=== PATIENT | male | born 1955 | race Caucasian/White ===

== ENCOUNTER → 2019-02-07 08:18 | Outpatient (CLI) | payer OTHER, SELFPAY ==
[2019-02-07 09:41] LABS: Alanine Aminotransferase 28 IU/L (21-72); Aspartate Aminotransferase 27 IU/L (17-59); BUN Creatinine Ratio 21.3 (6-22); Blood Urea Nitrogen 17 mg/dL (9-20); Calcium 9.5 mg/dL (8.4-10.2); Carbon Dioxide 28 mmol/L (22-32); Chloride 106 mmol/L (98-107); Cholesterol 174 mg/dL (140-199); Estimated Glomerular Filt Rate > 60.0 mL/min (>60); Glucose 97 mg/dL (80-110); HDL Cholesterol 52 mg/dL (40-60); HEMOLYSIS < 15 (0-50); LDL Cholesterol Calculated 106 mg/dL (<100); Potassium 4.6 mmol/L (3.4-5.1); Sodium 140 mmol/L (137-145); Triglycerides 80 mg/dL (35-150)
[2019-02-07 10:11] LABS: Prostate Specific Antigen Scrn 1.68 ng/mL (0.1-4.0)
== END ==
PROVIDERS: PCP Internal Medicine; Visit Provider Internal Medicine
DX: Z00.00 Encounter for general adult medical examination without abnormal findings (principal); E78.5 Hyperlipidemia, unspecified
CPT/HCPCS: 36415; 80048; 80061; 84450; 84460; G0103

== ENCOUNTER → 2022-04-25 15:46 | Outpatient (CLI) | payer MEDICARE, OTHER, SELFPAY | PROVIDERS: PCP Internal Medicine; Visit Provider Registered Nurse | DX: R30.0 Dysuria (principal) | CPT/HCPCS: 87086 ==

== ENCOUNTER 2022-05-10 14:03 | Emergency (ER) | payer MEDICARE, OTHER, SELFPAY ==
[2022-05-10 14:19] VITALS: BP 153/91; PULSE 91; RESP 20; TEMP 36.5; O2SAT 98; BMI 28.5
--- NOTE | 2022-05-10 18:01 | ED_ITS ---
HPI - Male Genitourinary <Mena Morgan, [facility] - Last Filed: 05/10/22 20:21> General Chief complaint: Urogenital-Male Stated complaint: Thought UTI 3weeks ago tested clean, Worsening Time Seen by Provider: 05/10/22 17:30 Source: patient Mode of arrival: Ambulatory History of Present Illness HPI Narrative: This is a 67-year-old male who presents to the emergency department complaining of pain at his urethral meatus and pain, urinary urgency and frequency, states that he has been on ciprofloxacin for the last 5 days for presumed UTI and has an upcoming appointment with Urology but has not been seen yet. Patient says he has been up all night and multiple nights trying to empty his bladder. Postvoid residual today was completed without urinary retention however patient is complaining about pain at his urethral meatus instance that it is not painful when he voids but painful all other times. He states that he feels urinary urgency and frequency and has been on ciprofloxacin for the last 5 days and sta kailey that his symptoms may have gotten worse when that started. Patient is requesting Flomax and denies any pain with defecation, denies any receptive anal intercourse, denies being sexually active at this time due to his 's vaginal atrophy. Related Data Home Medications Medication Instructions Recorded Confirmed aspirin 81 mg tablet,delayed 81 mg PO QDAY ##0 11/18/12 04/25/22 release atorvastatin PO 04/25/22 04/25/22 Previous Rx's Medication Instructions Recorded gabapentin 300 mg capsule 300 mg PO TID #90 caps 07/31/16 (Neurontin) doxycycline hyclate 100 mg tablet 100 mg PO BID for ongoing urinary 05/10/22 pain 7 days #14 tabs lidocaine 4 % topical gel 1 applic topical QID PRN pain #10 05/10/22 grams phenazopyridine 100 mg tablet 100 mg PO TID PRN pain 6 doses #7 05/10/22 (Pyridium) tabs tamsulosin 0.4 mg capsule (Flomax) 0.4 mg PO BEDTIME #30 caps 05/10/22 Allergies Allergy/AdvReac Type Severity Reaction Status Date / Time codeine [CODEINE] Allergy Unknown DIARRHEA Unverified 04/25/22 15:56 SEASONAL POLLENS Allergy Mild SNEEZING Uncoded 04/25/22 15:56 Review of Systems <ANGELIA Pandya - Last Filed: 05/10/22 20:21> Review of Systems Narrative: Review of systems is negative for acute abnormalities unless otherwise noted in HPI Patient History <ANGELIA Pandya - Last Filed: 05/10/22 20:21> Social History Smoking Status: Never smoker Smoking Status: Never smoker alcohol intake frequency: holidays/special occasions only Substance Use Type: does not use Exam <ANGELIA Pandya - Last Filed: 05/10/22 20:21> Narrative Exam Narrative: Reviewed vitals signs and nursing notes. General: cooperative, comfortable, in no acute distress, well groomed HEENT: symmetrical facial expressions, moist mucous membranes Cardiovascular: regular rate and rhythm, no peripheral edema, warm extremities Respiratory: normal effort, able to speak in complete sentences, without wheezing, stridor, or abnormal breath sounds. No retractions or tachypnea. GI: abdomen soft, nontender to palpation, nondistended, without masses, rebound tenderness or exquisite tenderness with exam. Prostate exam deferred as patient states that he has had his regularly checked and does not have any pain with defecation : Management Engineer used for exam, no wound or erythema at the penile head, urethra is exquisitely tender, wet mount obtained from urethral meatus, no bleeding MSK: moves all extremities, neurovascularly intact, no weakness, normal tone Skin: brisk capillary refill, without pallor or erythema Neuro: normal speech and cognition, A&O x3, ambulatory, clear speech Psych: mental status is grossly normal, congruent mood, normal affect, pleasant and cooperative Initial Vital Signs Initial Vital Signs: Vital Signs Temperature 97.7 F 05/10/22 14:19 Pulse Rate 91 H 05/10/22 14:19 Respiratory Rate 20 05/10/22 14:19 Blood Pressure 153/91 H 05/10/22 14:19 Pulse Oximetry 98 05/10/22 14:19 Oxygen Delivery Method 05/10/22 14:19 <Bobbi Sheikh MD - Last Filed: 05/13/22 08:35> Initial Vital Signs Initial Vital Signs: Vital Signs Temperature 97.7 F 05/10/22 14:19 Pulse Rate 91 H 05/10/22 14:19 Respiratory Rate 20 05/10/22 14:19 Blood Pressure 153/91 H 05/10/22 14:19 Pulse Oximetry 98 05/10/22 14:19 Oxygen Delivery Method 05/10/22 14:19 Course <ANGELIA Pandya - Last Filed: 05/10/22 20:21> Orders Ordered: Discontinued Medications Doxycycline Hyclate (Doxycycline Hyclate 100 Mg Tablet) 100 mg PO NOW ONE Stop: 05/10/22 18:28 Last Admin: 05/10/22 18:37 Dose: Not Given Documented By: MARIO Tamsulosin HCl (Tamsulosin 0.4 Mg Capsule) 0.4 mg PO NOW ONE Stop: 05/10/22 18:15 Last Admin: 05/10/22 18:22 Dose: 0.4 mg Documented By: ALESSANDRA Consultations Consultation #1: Referral placed for Dr. Espinosa, recommend sooner follow-up for patient to evaluate etiology of his complaints Vital Signs Vital signs: Vital Signs - 8 hr 05/10/22 14:19 05/10/22 18:36 Temperature 97.7 F Pulse Rate 91 H 78 Respiratory Rate 20 20 Blood Pressure 153/91 H 152/99 H Pulse Oximetry 98 97 Oxygen Delivery Method Room Air Room Air <Bobbi Sheikh MD - Last Filed: 05/13/22 08:35> Orders Ordered: Discontinued Medications Doxycycline Hyclate (Doxycycline Hyclate 100 Mg Tablet) 100 mg PO NOW ONE Stop: 05/10/22 18:28 Last Admin: 05/10/22 18:37 Dose: Not Given Documented By: MARIO Tamsulosin HCl (Tamsulosin 0.4 Mg Capsule) 0.4 mg PO NOW ONE Stop: 05/10/22 18:15 Last Admin: 05/10/22 18:22 Dose: 0.4 mg Documented By: ALESSANDRA Vital Signs Vital signs: Vital Signs - 8 hr 05/10/22 14:19 05/10/22 18:36 Temperature 97.7 F Pulse Rate 91 H 78 Respiratory Rate 20 20 Blood Pressure 153/91 H 152/99 H Pulse Oximetry 98 97 Oxygen Delivery Method Room Air Room Air MDM - Male Genitourinary <ANGELIA Pandya - Last Filed: 05/10/22 20:21> Lab Data Labs: Lab Results 05/10/22 05/10/22 Range/Units 14:16 14:16 Urine RBC 1-5/hpf (0-5/HPF) Urine WBC 5-10/hpf H (0-5/HPF) Urine Bacteria Occasional (0-1) (None) Ur Culture Indicated? Specimen cultured Ur Chlamydia DNA (PCR) Not detected N gonorrhoeae DNA (PCR) Not detected Urine Dip Bedside Urine Glucose Negative Bedside Urine Bilirubin - Negative Bedside Urine Ketone - Negative Urine Specific [place] 1.030 Bedside Urine Occult Blood - Negative Bedside Urine pH 5.5 Bedside Urine Protein - Negative Bedside Urine Urobilinogen - Negative Bedside Urine Nitrite - Negative Bedside Urine Leukocytes - Negative Esterase SPEC #: [id number] CARTER: 05/10/22 STATUS: COMP REQ #: [id number] SPDESC: RECD: 05/10/[address]: Mena Morgan SOURCE: Penis ENTR: 05/10/[address]: Angella Garrison MD FAX TO: ORDERED: Wet Prep Procedure Result Verified Site Wet Prep Tric BV Lisandra Final 05/10/221819 White blood cells No WBC seen Clue cells: None seen Yeast: None seen Trichomonas: None seen MDM Narrative Medical decision making narrative: This is a 67-year-old male who presents to the emergency department stating that he thinks his prostate is getting larger and use having urinary urgency and frequency and has been on ciprofloxacin for 5 days for presumed urinary infection and states that he has pain is urethral meatus at all times other than when voiding. Patient's urine microscopy shows wbc's 5-10, 1-5 RBCs, occasional bacteria and urine was sent for culture. Wet mount of urethral meatus is negative for WBCs, clue cells, yeast and Trichomonas. Urine gonorrhea and chlamydia are negative. Patient was given a prescription of Pyridium, Flomax, lidocaine jelly, and doxycycline for concern about urethritis. A consultation to Urology was placed, hopefully patient can follow-up sooner than his scheduled appointment which is over a month out. His urine culture is pending, I encourage patient to finish his ciprofloxacin, he was given doxycycline for wait and see antibiotic to see if his symptoms get worse or better on Flomax and Pyridium. Encouraged him to stay hydrated, return to the emergency department for any progressing of his symptoms and especially for fever, chills, abdominal pain, nausea vomiting. Patient is appropriate and amenable to discharge home. Vital signs are stable on repeat examination is unremarkable. Patient has been informed of results. Patient has been given strict return to ER precautions for any new or worsening symptoms. Patient understands to follow up closely with outpatient providers as instructed. Patient understands plan and agrees to discharge home. All questions and concerns answered at this time. <Bobbi Sheikh MD - Last Filed: 05/13/22 08:35> Lab Data Labs: Lab Results 05/10/22 05/10/22 Range/Units 14:16 14:16 Urine RBC 1-5/hpf (0-5/HPF) Urine WBC 5-10/hpf H (0-5/HPF) Urine Bacteria Occasional (0-1) (None) Ur Culture Indicated? Specimen cultured Ur Chlamydia DNA (PCR) Not detected N gonorrhoeae DNA (PCR) Not detected Urine Dip Bedside Urine Glucose Negative Bedside Urine Bilirubin - Negative Bedside Urine Ketone - Negative Urine Specific [place] 1.030 Bedside Urine Occult Blood - Negative Bedside Urine pH 5.5 Bedside Urine Protein - Negative Bedside Urine Urobilinogen - Negative Bedside Urine Nitrite - Negative Bedside Urine Leukocytes - Negative Esterase Discharge Plan Departure Patient Disposition: Home Clinical Impression: Urethritis Instructions: Urethritis, DI for Urinary Tract Infection (UTI), DI for Urinary Retention in Men Activity Restrictions/Additional Instructions: *You have been diagnosed with urethritis, we will call you if your urine culture or other urine tests come back positive for something you will need a different prescription for. At this point, you are on day 5 of Cipro for a UTI, your u rine today shows bacteria and white blood cells in your urine. This may be from your urethra hence why I am calling this urethritis. If this does not improve, please try doxycycline for the next 7 days to see if that helps improve your symptoms. Please take the Pyridium to see if that helps it heal, and take Flomax each night to help empty your bladder. I have placed another consultation with Dr. Espinosa for Urology with hopes that he can see you before your scheduled appointment. Please call the office tomorrow to see if you can move your appointment up since there is a consultation in for you. Please start the antibiotic I have prescribed for you if your symptoms are ongoing, or if we call you and ask you to start those. If your symptoms progress and you have fever, chills, feel worse, please come back to the emergency department. Please use ibuprofen 800 mg every 8 hours as needed for your pain with food and water, inflammation may be a big part of the pain. *What to do: *Please continue to take your regular medications as directed. [x ] New medication prescriptions sent to your pharmacy: [ [facility]] [ ] New medication written as a paper prescription [ ] No new medications given *Please follow up with your primary care provider in 2-3 days, call for an appointment. Let them know you were seen in the Emergency Department and that we asked that you be seen for follow-up. We will electronically transmit a record of today's note if your PCP is in our system *If you do not have a primary care provider please contact [phone] [facility] with one of the [facility] primary care providers. *Return to Emergency Department if you should have any new, worsening, or concerning symptoms, such as [fever greater than 101F, chills, worsening pain, persistent vomiting or other bothersome symptoms]. Prescriptions: New doxycycline hyclate 100 mg tablet 100 mg PO BID 7 Days Qty: 14 0RF phenazopyridine [Pyridium] 100 mg tablet 100 mg PO TID PRN (Reason: pain) Qty: 7 0RF tamsulosin [Flomax] 0.4 mg capsule 0.4 mg PO BEDTIME Qty: 30 0RF lidocaine 4 % gel 1 applic topical QID PRN (Reason: pain) Qty: 10 0RF No Action atorvastatin PO aspirin 81 MG tablet,delayed release (DR/EC) 81 mg PO QDAY Qty: 0 gabapentin [Neurontin] 300 MG capsule 300 mg PO TID Qty: 90 0RF Referrals: Angella Garrison MD [Primary Care Provider] - Alexy Espinosa MD [Physician] - Visit Report Forms: Patient Portal/API <Bobbi Sheikh MD - Last Filed: 05/13/22 08:35> Cosign ED Attending Jose Lature Attestation: I was immediately available in the department for consultation throughout this patient's visit. I agree with documentation as above. Bobbi Sheikh MD
[2022-05-10 18:08] LABS: Bacteria Urine Occasional (0-1); Culture Indicated Urine Specimen Cultured; RBC Urine 1-5/HPF (0-5/HPF); WBC Urine 5-10/HPF (0-5/HPF)
[2022-05-10] MEDS: TAMSULOSIN 0.4 MG CAPSULE PO (18:22)
[2022-05-10 18:36] VITALS: BP 152/99; PULSE 78; RESP 20; O2SAT 97
[2022-05-10 19:47] LABS: Urine N gonorrhoeae NOT DETECTED
[2022-05-10 19:52] LABS: Urine Chlamydia NOT DETECTED
== END 2022-05-10 18:52 | disposition home or self-care (01) ==
PROVIDERS: Emergency Provider Nurse Practitioner Critical Care Medicine; PCP Internal Medicine
DX: N34.2 Other urethritis (principal); R33.8 Other retention of urine
CPT/HCPCS: 51798; 81003; 81015; 87086; 87210; 87491; 87591; 99283

== ENCOUNTER 2022-12-29 09:10 | Emergency (ER) | payer MEDICARE, OTHER, SELFPAY ==
[2022-12-29] VITALS (13 sets, daily range): BP systolic 123–150; BP diastolic 63–77; PULSE 54–71; RESP 14–25; TEMP 35.9; O2SAT 95–99; BMI 28.2
--- NOTE | 2022-12-29 09:25 | DI.RAD.S_ITS ---
PROCEDURE: XR CHEST 1V INDICATIONS: chest pain TECHNIQUE: One view of the chest was acquired. COMPARISON: None. FINDINGS: Surgical changes and devices: None. Lungs and pleura: Lungs are clear. No pleural effusions or pneumothorax. Mediastinum: Mediastinal contours appear normal. Heart size is normal. Bones and chest wall: No suspicious bony lesions. Overlying soft tissues appear unremarkable. IMPRESSION: No acute cardiopulmonary abnormalities or focal airspace disease. Dictated by: Dwayne Britt M.D. on 12/29/2022 at 9:55 Approved by: Dwayne Britt M.D. on 12/29/2022 at 9:56
[2022-12-29 09:35] LABS: Add Manual Diff / Slide Review NO; Basophils Absolute Auto 0 /uL (0-100); Basophils Percent Auto 0.5 % (0-2); Eosinophils Absolute Auto 500 /uL (0-450); Eosinophils Percent Auto 8.6 % (2-4); Hematocrit 42.9 % (41-53); Hemoglobin 14.8 g/dL (13.5-17.5); Lymphocytes Absolute Auto 900 /uL (1100-4500); Lymphocytes Percent Auto 17.1 % (25-40); Mean Corpuscular HGB Conc 34.6 % (30-36); Mean Corpuscular Hemoglobin 30.7 PG (26-34); Mean Corpuscular Volume 88.6 fL (80-100); Monocytes Absolute Auto 500 /uL (0-900); Monocytes Percent Auto 8.8 % (3-14); Neutrophils Absolute Auto 3600 /uL (1500-7000); Platelet Count 181 X10^3/uL (150-400); Red Blood Cell Count 4.84 X10^6/uL (4.5-5.9); Red Cell Distribution Width 13.7 % (11.6-14.8); White Blood Cell Count 5.5 X10^3/uL (4.5-11.0)
[2022-12-29 09:38] LABS: INR 1.1 (0.9-1.3); Prothrombin Time 12.5 SECONDS (10.1-12.7)
[2022-12-29 09:40] LABS: PTT Partial Thromboplastin Tim 30 SECONDS (26-36)
[2022-12-29 09:45] LABS: Alanine Aminotransferase 29 IU/L (<50); Albumin 4.2 g/dL (3.5-5.0); Albumin Globulin Ratio 1.5 (1.0-2.8); Alkaline Phosphatase 74 U/L (38-126); Aspartate Aminotransferase 33 IU/L (17-59); BUN Creatinine Ratio 17.2 (6-22); Bilirubin Total 2.9 mg/dL (0.2-1.3); Blood Urea Nitrogen 15 mg/dL (9-20); Calcium 8.9 mg/dL (8.4-10.2); Carbon Dioxide 26 mmol/L (22-32); Chloride 105 mmol/L (98-107); Creatine Kinase 254 U/L (55-170); Estimated Glomerular Filt Rate > 60 mL/min (>60); Globulin 2.8 g/dL (1.7-4.1); Glucose 117 mg/dL (80-110); HEMOLYSIS < 15 (0-50); Lipase 79 U/L (23-300); Magnesium 2.2 mg/dL (1.6-2.3); Potassium 4.2 mmol/L (3.4-5.1); Sodium 137 mmol/L (137-145)
[2022-12-29 09:45] LABS: COVID19 -Nasal RAPID Negative (Negative)
[2022-12-29 09:57] LABS: Troponin I < 0.012 ng/mL (0.01-0.034)
[2022-12-29 09:59] LABS: CKMB % Relative Index 1.1 % (1.5-5.0); Creatine Kinase MB 2.78 ng/mL (<2.37)
--- NOTE | 2022-12-29 11:11 | ED.NEUROSD ---
HPI - Neuro Symptoms/Deficit General Chief Complaint: Dizziness Stated Complaint: dizzy/ balance off/ BP is high Time Seen by Provider: 12/29/22 11:11 Source: patient Mode of arrival: Ambulatory History of Present Illness HPI Narrative: This is a 67-year-old male with history of BPH and dyslipidemia who presented with vertigo-like symptoms. Patient states he woke up this morning open his eyes in the room was spinning. He states the spinning eventually resolved but not immediately. He states that he also feels very off balance and has been able to walk but has to hang onto things. Patient denies any headache, no vision changes, no cold cough or congestion. No ear pain. No double vision. No speech changes. No numbness, tingling or weakness in his extremities. He states he is off balance but does not have any weakness that he appreciates. He states movements of his head seems to make his symptoms worse. No bowel or bladder incontinence. No chest pain or shortness of breath. No nausea no vomiting, no diarrhea constipation, no urinary symptoms. He is not had similar symptoms in the past. He is had a prior appendectomy and knee surgery. No tobacco, 2 or 3 beers monthly, he did have a [place] and shot of Tequila last night. No illicit. His primary care is Dr. Patel. Related Data Home Medications Medication Instructions Recorded Confirmed aspirin 81 mg tablet,delayed 81 mg PO QDAY ##0 11/18/12 11/09/22 release atorvastatin PO 04/25/22 11/09/22 cholecalciferol (vitamin D3) 50 50 mcg PO DAILY 05/25/22 11/09/22 mcg (2,000 unit) capsule Previous Rx's Medication Instructions Recorded gabapentin 300 mg capsule 300 mg PO TID #90 caps 07/31/16 (Neurontin) tamsulosin 0.4 mg capsule (Flomax) 0.4 mg PO BEDTIME #90 caps 05/25/22 meclizine 25 mg chewable tablet 25 mg PO TID PRN dizziness #20 tabs 12/29/22 Allergies Allergy/AdvReac Type Severity Reaction Status Date / Time codeine [CODEINE] Allergy Unknown DIARRHEA Verified 12/29/22 09:19 SEASONAL POLLENS Allergy Mild SNEEZING Uncoded 11/09/22 08:12 Review of Systems Review of Systems ROS Unobtainable: All systems reviewed & are unremarkable except as noted in HPI and below Patient History Medical History Anxiety History of urinary tract infection Incomplete emptying of bladder Lower urinary tract symptoms Shy bladder syndrome Surgical History History of knee replacement Hx of appendectomy Family History Father Hyperlipidemia Heart attack Social History marital status: number of children: 1 Smoking Status: Never smoker Smoking Status: Never smoker alcohol intake frequency: a few times a month Substance Use Type: does not use Exam Narrative Exam Narrative: GEN: well nourished, well appearing male, alert and oriented x 3, patient appears to be in mild distress. HEENT: Atraumatic, pupils are equal round reactive to light, extraocular movements are intact, positive Graciela-Hallpike on the right with rotatory nystagmus, nares are clear, TMs are retracted, mild fluid, no erythema or other skin changes, there is no conjunctival pallor. Throat is clear without any exudates, erythema, tonsillar enlargement or uvular deviation, no facial droop. HEART: Regular rate and rhythm without murmur, clicks, rubs. No carotid bruits, pulses are equal in upper and lower extremities LUNGS:Lungs clear to auscultation, no wheezes, rales, crackles, chest moves symmetrically ABD:bowel sounds normal, soft, non-tender, no guarding, rebound, rigidity, no masses noted, no hepatosplenomegaly :No CVA tenderness MSCL: Non-tender, no muscle atrophy, muscles strength 5/5 upper and lower extremities, full range of motion NEURO:CN 2-12 intact, sensation normal, finger nose finger test normal, heel alba test normal. SKIN: No rash, erythema or other skin changes Initial Vital Signs Initial Vital Signs: Vital Signs Temperature 96.6 F L 12/29/22 09:14 Pulse Rate 63 12/29/22 09:14 Respiratory Rate 14 12/29/22 09:14 Blood Pressure 150/72 H 12/29/22 09:14 Pulse Oximetry 98 12/29/22 09:14 Oxygen Delivery Method Room Air 12/29/22 09:14 Scores NIH Stroke Scale Level of Conciousness: Alert, keenly responsive Ask month/age: Answers both questions correctly. Open/close eyes, close hand: Performs both tasks correctly Best gaze horizontal: Normal Visual curran: No visual loss Facial palsy: Normal symetrical movement Left arm drift: No drift for full 10 sec Right arm drift: No drift for full 10 sec Left leg drift: No drift for full 5 sec Right leg drift: No drift for full 5 sec Limb ataxia: Absent Sensory on face/arms/legs: Normal, no sensory loss Best language: No aphasia, normal Dysarthria: Normal Extinction or inattention: No abnormality Total NIH Stroke scale score: 0 Course Orders Ordered: Discontinued Medications Meclizine HCl (Meclizine Hcl 12.5 Mg Tablet) 50 mg PO NOW ONE Stop: 12/29/22 11:40 Last Admin: 12/29/22 11:53 Dose: 50 mg Documented By: MARIO Vital Signs Vital signs: Vital Signs - 8 hr 12/29/22 11:00 12/29/22 11:01 12/29/22 11:01 Pulse Rate 55 L 54 L Respiratory Rate 24 Blood Pressure 148/66 H Pulse Oximetry 96 96 12/29/22 11:30 12/29/22 11:31 12/29/22 11:31 Pulse Rate 71 63 Respiratory Rate 25 H Blood Pressure 123/69 Pulse Oximetry 96 97 12/29/22 12:00 Pulse Rate Respiratory Rate Blood Pressure 141/75 H Pulse Oximetry MDM - Neuro Symptoms/Deficit Lab Data 12/29/22 09:28 12/29/22 09:28 Labs: Lab Results 12/29/22 12/29/22 12/29/22 Range/Units 09: 09:28 09:28 WBC 5.5 (4.5-11.0) X10^3/uL RBC 4.84 (4.5-5.9) X10^6/uL Hgb 14.8 (13.5-17.5) g/dL Hct 42.9 (41-53) % MCV 88.6 (80-100) fL MCH 30.7 (26-34) PG MCHC 34.6 (30-36) % RDW 13.7 (11.6-14.8) % Plt Count 181 (150-400) X10^3/uL Neut % (Auto) 65.0 (50-75) % Lymph % (Auto) 17.1 L (25-40) % Faulk % (Auto) 8.8 (3-14) % Eos % (Auto) 8.6 H (2-4) % Baso % (Auto) 0.5 (0-2) % Neut # (Auto) 3600 (4058-1173) /uL Lymph # (Auto) 900 L (6319-1404) /uL Faulk # (Auto) 500 (0-900) /uL Eos # (Auto) 500 H (0-450) /uL Baso # (Auto) 0 (0-100) /uL PT 12.5 (10.1-12.7) SECONDS INR 1.1 (0.9-1.3) APTT 30 (26-36) SECONDS Sodium (137-145) mmol/L Potassium (3.4-5.1) mmol/L Chloride (98-107) mmol/L Carbon Dioxide (22-32) mmol/L BUN (9-20) mg/dL Creatinine (0.66-1.25) mg/dL Estimated GFR (>60) mL/min BUN/Creatinine Ratio (6-22) Glucose (80-110) mg/dL Calcium (8.4-10.2) mg/dL Magnesium (1.6-2.3) mg/dL Total Bilirubin (0.2-1.3) mg/dL AST (17-59) IU/L ALT (<50) IU/L Alkaline Phosphatase (38-126) U/L Total Creatine Kinase (55-170) U/L CK-MB (CK-2) (<2.37) ng/mL CK-MB (CK-2) Rel Index (1.5-5.0) % Troponin I (0.01-0.034) ng/mL Total Protein (6.3-8.2) g/dL Albumin (3.5-5.0) g/dL Globulin (1.7-4.1) g/dL Albumin/Globulin Ratio (1.0-2.8) Lipase (23-300) U/L SARS-CoV-2 (PCR) Negative (Negative) 12/29/22 Range/Units 09:28 WBC (4.5-11.0) X10^3/uL RBC (4.5-5.9) X10^6/uL Hgb (13.5-17.5) g/dL Hct (41-53) % MCV (80-100) fL MCH (26-34) PG MCHC (30-36) % RDW (11.6-14.8) % Plt Count (150-400) X10^3/uL Neut % (Auto) (50-75) % Lymph % (Auto) (25-40) % Faulk % (Auto) (3-14) % Eos % (Auto) (2-4) % Baso % (Auto) (0-2) % Neut # (Auto) (4514-9895) /uL Lymph # (Auto) (8648-1220) /uL Faulk # (Auto) (0-900) /uL Eos # (Auto) (0-450) /uL Baso # (Auto) (0-100) /uL PT (10.1-12.7) SECONDS INR (0.9-1.3) APTT (26-36) SECONDS Sodium 137 (137-145) mmol/L Potassium 4.2 (3.4-5.1) mmol/L Chloride 105 (98-107) mmol/L Carbon Dioxide 26 (22-32) mmol/L BUN 15 (9-20) mg/dL Creatinine 0.87 (0.66-1.25) mg/dL Estimated GFR > 60 (>60) mL/min BUN/Creatinine Ratio 17.2 (6-22) Glucose 117 H (80-110) mg/dL Calcium 8.9 (8.4-10.2) mg/dL Magnesium 2.2 (1.6-2.3) mg/dL Total Bilirubin 2.9 H (0.2-1.3) mg/dL AST 33 (17-59) IU/L ALT 29 (<50) IU/L Alkaline Phosphatase 74 (38-126) U/L Total Creatine Kinase 254 H (55-170) U/L CK-MB (CK-2) 2.78 H (<2.37) ng/mL CK-MB (CK-2) Rel Index 1.1 L (1.5-5.0) % Troponin I < 0.012 (0.01-0.034) ng/mL Total Protein 7.0 (6.3-8.2) g/dL Albumin 4.2 (3.5-5.0) g/dL Globulin 2.8 (1.7-4.1) g/dL Albumin/Globulin Ratio 1.5 (1.0-2.8) Lipase 79 (23-300) U/L SARS-CoV-2 (PCR) (Negative) Imaging Data Chest x-ray: Radiologist's Impression: [address] [address] XRay Report Signed Patient: Juan Lopez MR#: [id number] : 1955 Acct:[id number] Age/Sex: 67 / M Date of Service: 12/29/22 Loc: ED Accession Number: [id number] ?? Procedure: XR chest 1V Ordering Provider: Gale Rodriguez D.O. PROCEDURE:? XR CHEST 1V ? INDICATIONS:? chest pain ? TECHNIQUE:? One view of the chest was acquired.? ? COMPARISON:? None. ? FINDINGS:? ? Surgical changes and devices:? None.? ? Lungs and pleura:? Lungs are clear.? No pleural effusions or pneumothorax.? ? Mediastinum:? Mediastinal contours appear normal.? Heart size is normal.? ? Bones and chest wall:? No suspicious bony lesions.? Overlying soft tissues appear unremarkable.? ? IMPRESSION:? No acute cardiopulmonary abnormalities or focal airspace disease. ? Dictated by: Dwayne Britt M.D. on 12/29/2022 at 9:55 ? ? Approved by: Dwayne Britt M.D. on 12/29/2022 at 9:56 ECG Data Attestation: I personally reviewed and interpreted this ECG as follows: Prior ECG tracings: not available for review Interpretation: Sinus rhythm premature atrial complex right bundle-branch block, left anterior fascicular block they bifascicular block. Rate of 61 MS 158 QRS of 142 QTC of 471. No acute ST elevation appreciated. No priors for comparison. MDM Narrative Medical decision making narrative: This is a 67-year-old male with vertigo symptoms on exam he has a positive [place]-Hallpike with no other acute neurologic changes. He has been able to ambulate without any safety issues. CBC, CMP, coags are negative, bilirubin is 2.9 patient states he has a chronic issues since he was a child and they continue to monitor at that is a normal level for him. Patient's AST ALT lipase are negative CK is 245 troponin is negative, chest x-ray was negative, patient does not have prior EKG but has a bifascicular block. Discussed with patient I do not feel he require CT or CT angio at this time she has a clear positive [place]-Hallpike without any other acute neurologic changes. His symptoms have been slowly improving over time still present but were worsened when I perform the maneuver. Discussed can use meclizine, return precautions and follow up with primary care. Referral to ENT, Jon dorsey for symptoms. Discharge Plan Departure Patient Disposition: Home Clinical Impression: Benign paroxysmal positional vertigo Instructions: Benign Paroxysmal Positional Vertigo Activity Restrictions/Additional Instructions: Please follow-up with ENT and/or your physician for recheck. You appear to have BPPV today which can cause vertigo symptoms. Included is the Jon which may be helpful for your symptoms, I would try this after you have had a little bit of time with the meclizine on board. You may take meclizine 1-2 tablets every 8 hours as needed for symptoms. Prescription sent to [facility] in [place]. Please return for severe headaches, new vision changes, new numbness, tingling weakness, difficulty with speech, worsening symptoms or other new or concerning changes. Prescriptions: New meclizine 25 mg tablet,chewable 25 mg PO TID PRN (Reason: dizziness) Qty: 20 0RF Rx Instructions: 1-2 tablets every 8 hours as needed for vertigo symptoms. No Action atorvastatin PO aspirin 81 MG tablet,delayed release (DR/EC) 81 mg PO QDAY Qty: 0 gabapentin [Neurontin] 300 MG capsule 300 mg PO TID Qty: 90 0RF cholecalciferol (vitamin D3) 50 mcg (2,000 unit) capsule 50 mcg PO DAILY tamsulosin [Flomax] 0.4 mg capsule 0.4 mg PO BEDTIME Qty: 90 3RF Referrals: Arley Morales MD [Physician] - Samantha Patel MD [Primary Care Provider] - Stand Alone Forms: Patient Portal/API
[2022-12-29] MEDS: MECLIZINE HCL 12.5 MG TABLET 50 MG PO (11:53)
== END 2022-12-29 12:00 | disposition home or self-care (01) ==
PROVIDERS: Emergency Provider Emergency Medicine; PCP Internal Medicine
DX: H81.10 Benign paroxysmal vertigo, unspecified ear (principal); R07.9 Chest pain, unspecified; Z20.822 Contact with and (suspected) exposure to COVID-19
CPT/HCPCS: 36415; 71045; 80053; 82550; 82553; 83690; 83735; 84484; 85025; 85610; 85730; 87635; 93005; 99284; C9803

== ENCOUNTER 2023-01-02 09:34 | Outpatient (RCR) | payer MEDICARE, OTHER, SELFPAY ==
--- NOTE | 2023-01-02 12:00 | PT.OIE ---
Current Diagnoses Paresthesia of skin (01/02/23) Dizziness and giddiness (01/02/23) Past Medical History (Last Reviewed 12/29/22 @ 11:44 by Gale Rodriguez DO) Anxiety History of urinary tract infection Incomplete emptying of bladder Lower urinary tract symptoms Shy bladder syndrome Past Surgical History (Last Reviewed 12/29/22 @ 11:44 by Gale Rodriguez DO) History of knee replacement Hx of appendectomy Visit Care Team Role Provider Type Samantha Patel MD Attending Provider Physician Family Provider Primary Care Provider Referring Provider Specialty: Internal Medicine Address: [place] [address] Phone: Email: Physical Therapy Initial Evaluation PT-OP-A Visit Information Start: 01/01/23 15:28 Freq: Status: Active Protocol: Document 01/02/23 10:23 AMB (Rec: 01/02/23 10:45 AMB [id number]) Out-Patient Physical Therapy Visit Information Visit Information Visit Type Initial Evaluation Visit Start Time 10:00 Visit Stop Time 10:30 Total Visit Minutes 30 Visit Number 1 PT-OP-B Current Condition Start: 01/01/23 15:28 Freq: Status: Active Protocol: Document 01/02/23 10:23 AMB (Rec: 01/02/23 10:45 AMB [id number]) Current Condition History of Current Condition Onset Date 12/29/22 Current Complaints Dizziness History of Current Condition Pt was seen in ED and found to have nystagmus with R DixHallpike, was instructed in Jon manuever and has performed at home 2x/day since . 1st rep was highly positive per pt, has decreased in severity since. Still feels a bit off, 1-2/10 dizziness at this point. PT-OP-C Subjective Start: 01/01/23 15:28 Freq: Status: Active Protocol: Document 01/02/23 10:23 AMB (Rec: 01/02/23 10:45 AMB [id number]) Patient Questionnaires Dizziness Handicap Inventory DHI Score 46 DHI Functional Impairment 40 to 59% Impaired (Score 40- 59) PT-OP-O Vestibular Start: 01/01/23 15:28 Freq: Status: Active Protocol: Document 01/02/23 10:00 AMB (Rec: 01/03/23 07:40 AMB [id number]) Vestibular Assessment Screening Tests Vestibular Artery Screen Negative Visual Testing Smooth Pursuits Horizontal WFL Smooth Pursuits Vertical WFL Saccades Horizontal WFL Saccades Vertical WFL Thrust Head Negative Positional Testing Graciela-Hallpike Negative Left,Negative Right Comments Vestibular Comments Pt had nystagmus in the ED on Sunday with R DixHallpike,but was negative for nystagmus or dizziness today. PT-OP-T Assessment and Plan Start: 01/01/23 15:28 Freq: Status: Active Protocol: Document 01/02/23 10:23 AMB (Rec: 01/02/23 10:45 [facility] [id number]) Physical Therapy Assessment Rehab Potential Rehabilitation Potential Good Evaluation Complexity Number of Personal Factors/Comorbidities 0 Number of Body Systems Impaired 1-2 Clinical Presentation at Evaluation Stable Impairments Impairments Vestibular Goals One Short Term Goal (STG) Juan will not have any dizziness or nystagmus with bed mobility. Assessment Summary Assessment The patient attended physical therapy with a history of positive R DixHallpike. Had been doing Jon 2x/day and was very symptomatic with first repetition. Has been getting better since. Was negative with all testing today for nystagmus, did have mild 1-2/10 dizziness with sitting up from Graciela Hallpike position. Pt was educated in BPPV and feels confident with his ability to perform at home . Will keep on caseload for 4 weeks in case of return of symptoms and can d/c at that point if he is doing well. Physical Therapy Plan Frequency and Duration Frequency of Treatment 1x/Week Duration of treatment (weeks) 4 Plan of Care Start Date 01/02/23 Plan of Care End Date 01/20/23 Therapeutic Interventions Therapeutic Interventions Balance Training,Home Exercise Program,Vestibular Rehabilitation Next Visit Focus/Plan Next Note Type Treatment Note
--- NOTE | 2023-01-02 12:00 | PT.OPPOC ---
Physical, Occupational & Speech Therapy At [facility] Current Diagnoses Paresthesia of skin (01/02/23) Dizziness and giddiness (01/02/23) Visit Care Team Role Provider Type Samantha Patel MD Attending Provider Physician Family Provider Primary Care Provider Referring Provider Specialty: Internal Medicine Address: [place], [place], [facility] Phone: Email: Plan Of Care PT-OP-T Assessment and Plan Start: 01/01/23 15:28 Freq: Status: Active Protocol: Document 01/02/23 10:23 AMB (Rec: 01/02/23 10:45 AMB [id number]) Physical Therapy Assessment Rehab Potential Rehabilitation Potential Good Evaluation Complexity Number of Personal Factors/Comorbidities 0 Number of Body Systems Impaired 1-2 Clinical Presentation at Evaluation Stable Impairments Impairments Vestibular Goals One Short Term Goal (STG) Juan will not have any dizziness or nystagmus with bed mobility. Assessment Summary Assessment The patient attended physical therapy with a history of positive R DixHallpike. Had been doing Jon 2x/day and was very symptomatic with first repetition. Has been getting better since. Was negative with all testing today for nystagmus, did have mild 1-2/10 dizziness with sitting up from [place] Hallpike position. Pt was educated in BPPV and feels confident with his ability to perform at home . Will keep on caseload for 4 weeks in case of return of symptoms and can d/c at that point if he is doing well. Physical Therapy Plan Frequency and Duration Frequency of Treatment 1x/Week Duration of treatment (weeks) 4 Plan of Care Start Date 01/02/23 Plan of Care End Date 01/20/23 Therapeutic Interventions Therapeutic Interventions Balance Training,Home Exercise Program,Vestibular Rehabilitation Next Visit Focus/Plan Next Note Type Treatment Note Plan of Care Dates Plan of Care Start Date 01/02/23 Plan of Care End Date 01/20/23 Electronically Signed by: Khadijah Bingham, PT 01/03/23 0743 If you are in agreement with this Plan of Care, please return a signed and dated copy. I have reviewed this Plan of Care and certify that the skilled therapy services above are required to meet the patient?s needs. Physician Signature Date Printed Name and Credentials Clinical Instructor Signature Printed Name and Credentials
--- NOTE | 2023-03-21 13:26 | PT.OPDS ---
Current Diagnoses Paresthesia of skin (01/02/23) Dizziness and giddiness (01/02/23) Visit Care Team Role Provider Type Samantha Patel MD Attending Provider Physician Family Provider Primary Care Provider Referring Provider Specialty: Internal Medicine Address: [place], [address] Phone: Email: Visit Number Visit Number 1 Discharge Summary PT-OP-B Current Condition Start: 01/01/23 15:28 Freq: Status: Active Protocol: Document 01/02/23 10:23 AMB (Rec: 01/02/23 10:45 AMB [id number]) Current Condition History of Current Condition Onset Date 12/29/22 Current Complaints Dizziness History of Current Condition Pt was seen in ED and found to have nystagmus with R DixHallpike, was instructed in Jon dorsey and has performed at home 2x/day since . 1st rep was highly positive per pt, has decreased in severity since. Still feels a bit off, 1-2/10 dizziness at this point. PT-OP-C Subjective Start: 01/01/23 15:28 Freq: Status: Active Protocol: Document 01/02/23 10:23 AMB (Rec: 01/02/23 10:45 AMB [id number]) Patient Questionnaires Dizziness Handicap Inventory DHI Score 46 DHI Functional Impairment 40 to 59% Impaired (Score 40- 59) PT-OP-O Vestibular Start: 01/01/23 15:28 Freq: Status: Active Protocol: Document 01/02/23 10:00 AMB (Rec: 01/03/23 07:40 AMB [id number]) Vestibular Assessment Screening Tests Vestibular Artery Screen Negative Visual Testing Smooth Pursuits Horizontal WFL Smooth Pursuits Vertical WFL Saccades Horizontal WFL Saccades Vertical WFL Thrust Head Negative Positional Testing [place]-Hallpike Negative Left,Negative Right Comments Vestibular Comments Pt had nystagmus in the ED on Sunday with R DixHallpike,but was negative for nystagmus or dizziness today. PT-OP-T Assessment and Plan Start: 01/01/23 15:28 Freq: Status: Active Protocol: Document 03/21/23 13:26 AMB (Rec: 03/21/23 13:26 AMB [id number]) Physical Therapy Assessment Assessment Summary Assessment Pt did not follow up after having negative testing for BPPV and is therefore dce/d.
== END 2023-03-22 12:08 | disposition home or self-care (01) ==
LOC: PHYS 09:34
PROVIDERS: Family Provider Internal Medicine; PCP Internal Medicine; Referring Provider Internal Medicine; Visit Provider Internal Medicine
DX: R42 Dizziness and giddiness (principal); R20.2 Paresthesia of skin
CPT/HCPCS: 97161

== ENCOUNTER → 2024-04-02 09:59 | Outpatient (CLI) | payer MEDICARE, OTHER, SELFPAY | LOC: LAB 10:01 | PROVIDERS: Family Provider Internal Medicine; PCP Family Medicine; Referring Provider Internal Medicine Cardiovascular Disease; Visit Provider Internal Medicine Cardiovascular Disease | DX: I10 Essential (primary) hypertension (principal) | CPT/HCPCS: 36415; 82088; 83835 ==

== ENCOUNTER → 2024-05-05 08:56 | Outpatient (CLI) | payer MEDICARE, OTHER, SELFPAY ==
[2024-05-05 11:57] LABS: Prostate Specific Antigen 1.66 ng/mL (0.10-4.00)
== END ==
LOC: LAB 08:57
PROVIDERS: Family Provider Internal Medicine; PCP Family Medicine; Referring Provider Urology; Visit Provider Urology
DX: R39.9 Unspecified symptoms and signs involving the genitourinary system (principal)
CPT/HCPCS: 36415; 84153

== ENCOUNTER → 2024-12-16 08:34 | Outpatient (CLI) | payer MEDICARE, OTHER, SELFPAY ==
[2024-12-16 10:23] LABS: Alanine Aminotransferase 22 IU/L (<50); Albumin 4.3 g/dL (3.5-5.0); Albumin Globulin Ratio 1.7 (1.0-2.8); Alkaline Phosphatase 80 U/L (38-126); Aspartate Aminotransferase 24 IU/L (17-59); BUN Creatinine Ratio 16.2 (6-22); Blood Urea Nitrogen 17 mg/dL (9-20); Calcium 9.5 mg/dL (8.4-10.2); Carbon Dioxide 25 mmol/L (22-32); Chloride 107 mmol/L (98-107); Cholesterol 173 mg/dL (140-199); Estimated Glomerular Filt Rate > 60 mL/min (>60); Globulin 2.5 g/dL (1.7-4.1); Glucose 98 mg/dL (70-99); HDL Cholesterol 61 mg/dL (40-60); HEMOLYSIS < 15 (0-50); LDL Cholesterol Calculated 95 mg/dL (<100); Potassium 4.5 mmol/L (3.4-5.1); Sodium 138 mmol/L (137-145); Total Protein 6.8 g/dL (6.3-8.2); Triglycerides 84 mg/dL (35-150)
== END ==
PROVIDERS: Family Provider Internal Medicine; PCP Family Medicine; Referring Provider Nurse Practitioner; Visit Provider Nurse Practitioner
DX: E78.5 Hyperlipidemia, unspecified (principal); I10 Essential (primary) hypertension
CPT/HCPCS: 36415; 80053; 80061

== ENCOUNTER 2024-12-19 20:34 | Emergency (ER) | payer MEDICARE, OTHER, SELFPAY ==
[2024-12-19 20:46] VITALS: BP 143/85; PULSE 63; RESP 16; TEMP 37; O2SAT 96; BMI 28.1
--- NOTE | 2024-12-20 19:33 | ED.ANIMALBIT ---
HPI - Animal Bite General Chief Complaint: Animal Bite Stated Complaint: tick Source: patient Mode of arrival: Ambulatory Related Data Home Medications Medication Instructions Recorded Confirmed aspirin 81 mg tablet,delayed 81 mg PO QDAY ##0 11/18/12 12/20/24 release cholecalciferol (vitamin D3) 50 50 mcg PO DAILY 05/25/22 12/20/24 mcg (2,000 unit) capsule losartan 25 mg tablet 25 mg PO DAILY 05/08/24 12/20/24 atorvastatin 20 mg tablet 20 mg PO DAILY 06/02/24 12/20/24 Previous Rx's Medication Instructions Recorded tamsulosin 0.4 mg capsule (Flomax) 0.4 mg PO BEDTIME #90 caps 05/08/24 fluticasone propionate 50 1 spray intranasal Q12H #16 grams 07/28/24 mcg/actuation nasal spray,suspension (Flonase Allergy Relief) doxycycline hyclate 100 mg capsule 100 mg PO ONCE #2 caps 12/20/24 Allergies Allergy/AdvReac Type Severity Reaction Status Date / Time codeine [CODEINE] Allergy Unknown DIARRHEA Verified 12/20/24 07:14 SEASONAL POLLENS Allergy Mild SNEEZING Uncoded 12/20/24 07:14 Patient History Medical History (Updated 12/19/24 @ 22:54 by Christin Novoa RN) 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 Anxiety Incomplete emptying of bladder History of urinary tract infection Lower urinary tract symptoms Surgical History History of knee replacement Hx of appendectomy Family History Father Hyperlipidemia Heart attack Social History marital status: number of children: 1 Smoking Status: Never smoker alcohol intake frequency: a few times a month Exam Initial Vital Signs Initial Vital Signs: Vital Signs Temperature 98.6 F 12/19/24 20:46 Pulse Rate 63 12/19/24 20:46 Respiratory Rate 16 12/19/24 20:46 Blood Pressure 143/85 H 12/19/24 20:46 Pulse Oximetry 96 12/19/24 20:46 Oxygen Delivery Method Room Air 12/19/24 20:46 Discharge Plan Departure Patient Disposition: Left Without Being Seen Clinical Impression: Patient left without being seen Prescriptions: No Action atorvastatin 20 mg tablet 20 mg PO DAILY fluticasone propionate [Flonase Allergy Relief] 50 mcg/actuation spray,suspension 1 spray intranasal Q12H Qty: 16 0RF Rx Instructions: administer into each nostril doxycycline hyclate 100 mg capsule 100 mg PO ONCE Qty: 2 0RF aspirin 81 MG tablet,delayed release (DR/EC) 81 mg PO QDAY Qty: 0 cholecalciferol (vitamin D3) 50 mcg (2,000 unit) capsule 50 mcg PO DAILY losartan 25 mg tablet 25 mg PO DAILY tamsulosin [Flomax] 0.4 mg capsule 0.4 mg PO BEDTIME Qty: 90 3RF
== END 2024-12-19 22:54 | disposition left against medical advice (07) ==
PROVIDERS: Emergency Provider Family Medicine; Family Provider Internal Medicine; PCP Family Medicine
DX: Z53.21 Procedure and treatment not carried out due to patient leaving prior to being seen by health care provider (principal)
CPT/HCPCS: 99281

== ENCOUNTER → 2025-05-07 09:58 | Outpatient (CLI) | payer MEDICARE, OTHER, SELFPAY | PROVIDERS: Family Provider Internal Medicine; PCP Internal Medicine; Referring Provider Urology; Visit Provider Urology | DX: Z12.5 Encounter for screening for malignant neoplasm of prostate (principal) | CPT/HCPCS: 36415; G0103 ==